=== PATIENT | male | born 1980 | race Caucasian/White ===

== ENCOUNTER 2017-03-21 22:48 | Emergency (ER) | payer SELFPAY ==
[~2017-03-21] VITALS: Ht 175.3 cm; Wt 81.6 kg
--- NOTE | 2017-03-21 22:48 | NUR ---
[facility] TO ER OF4
--- NOTE | 2017-03-21 22:50 | NUR ---
36Y/M PATIENT BIB [facility] TO ED FRO PRE BOOK. PT. POSSIBLE ETOH, DRUG ABUSE. AAOX3, AMBULATORY WITH STEADY GAIT. VSS, NO S/SX OF DISTRESS AT THIS TIME. ER MD MADE AWARE OF PT. STATUS.
[2017-03-21 22:54] VITALS: BP 140/73
--- NOTE | 2017-03-21 23:10 | NUR ---
PATIENT BIB [facility] [employer]. PATIENT EXAMINED BY DR. PAYNE. PATIENT MEDICALLY CLEARED AND RELEASED IN CUSTODY IN STABLE CONDITION. ORIGINAL PRE-BOOK FORM GIVEN TO OFFICER [facility].
[2017-03-21 23:11] VITALS: BP 140/73
== END 2017-03-21 23:10 ==
LOC: MED 22:48
DX: Z02.89 Encounter for other administrative examinations (principal); M25.532 Pain in left wrist; M25.531 Pain in right wrist
CPT/HCPCS: 99283